=== PATIENT | male | born 1995 | race Two or more races ===

== ENCOUNTER 2019-04-16 05:10 | Emergency (ER) | payer SELFPAY ==
[~2019-04-16] VITALS: Ht 180.3 cm; Wt 77.1 kg
[2019-04-16 05:21] VITALS: BP 128/85
--- NOTE | 2019-04-16 05:21 | NUR ---
ED Nurse Note: pt brought in by [facility] for medical clearance, c/c left wrist pain since today, denies recent injury.
[2019-04-16 05:59] VITALS: BP 128/85
--- NOTE | 2019-04-16 06:00 | NUR ---
ER DISCHARGE NOTE: Patient is cleared to be discharged per ERMD, pt is aox4, on room air, with stable vital signs. lasd was given dc and prescription instructions, pt was able to verbalize understanding, pt id band removed. pt is able to ambulate with lasd and took all belongings.
--- NOTE | 2019-04-16 07:44 | Diagnostic Imaging Report ---
EXAM: XR Left Wrist Complete, 3 Views CLINICAL HISTORY: PAIN TECHNIQUE: Frontal, lateral and oblique views of the left wrist. COMPARISON: No relevant prior studies available. FINDINGS: Bones/joints: Unremarkable. No acute fracture. No dislocation. Soft tissues: Unremarkable. No radiopaque foreign body. IMPRESSION: Unremarkable left wrist x-rays.
--- NOTE | 2019-04-18 15:57 | Emergency Room Report ---
History of Present Illness General Chief Complaint: Medical Clearance Source: Patient Present Illness HPI 23-year-old male presents ED complaining of left wrist pain. Brought in by [employer]. Is here for clearance. In handcuffs. Complaining of left wrist pain. States the handcuffs are tight. It is throbbing, 8 out of 10, nonradiating. Denies any other injuries. No other aggravating relieving factors. Denies any other associated symptoms Allergies: Coded Allergies: No Known Allergies (Unverified , 04/16/19) Patient History Past Medical History: none Past Surgical History: none Pertinent Family History: none Social History: Denies: smoking, alcohol use, drug use Immunizations: UTD Reviewed Nursing Documentation: PMH: Agreed; PSxH: Agreed Nursing Documentation-PMH Past Medical History: No Stated History Review of Systems All Other Systems: negative except mentioned in HPI Physical Exam Vital Signs Date Time Temp Pulse Resp B/P (MAP) Pulse Ox O2 Delivery O2 Flow Rate FiO2 04/16/19 05:13 98.2 79 18 128/85 (99) 97 Room Air Sp02 EP Interpretation: reviewed, normal General Appearance: no apparent distress, alert, GCS 15, non-toxic Head: normocephalic Eyes: bilateral eye normal inspection, bilateral eye PERRL ENT: normal ENT inspection Neck: normal inspection Respiratory: normal inspection Cardiovascular #1: normal inspection Gastrointestinal: normal inspection Rectal: deferred Genitourinary: no CVA tenderness Musculoskeletal: tender - L wrist Neurologic: alert, oriented x3, responsive, motor strength/tone normal, sensory intact, speech normal Psychiatric: normal inspection Skin: normal color Lymphatic: normal inspection Procedures Splinting Splinting : Consent: Verbal Pre-Made Type: velcro Splint: wrist Pre-Proc Neuro Vasc Exam: normal Post-Proc Neuro Vasc Exam: normal Patient Tolerated: Well Complications: None Medical Decision Making Diagnostic Impression: Primary Impression: Wrist pain Qualified Codes: M25.532 - Pain in left wrist Additional Impression: Medical clearance for incarceration ER Course Hospital Course 23 yo M presents to ED c/o L wrist pain. in handcuffs Differential diagnoses include: Fracture, dislocation, sprain, contusion Clinical course Patient placed on stretcher. After initial history and physical, I ordered Xrays L wrist Xrays read shows no acute fracture/dislocation. discussed findings with patient. Placed in Velcro wrist splint for symptomatic comfort. Patient is medically cleared for incarceration Diagnosis - wrist pain, medical clearance for incarceration Stable and discharged to police custody. apply ice. weight bear as tolerated. Followup with PMD. Return to ED if symptoms recur or worsen Other X-Ray Diagnostic Results Other X-Ray Diagnostic Results : X-Ray ordered: L wrist # of Views/Limited Vs Complete: 3 View Indication: Pain EP Interpretation: Yes Interpretation: no dislocation, no soft tissue swelling, no fractures Impression: No acute disease Electronically Signed by: Electronically signed by Doyle Ward MD Last Vital Signs Date Time Temp Pulse Resp B/P (MAP) Pulse Ox O2 Delivery O2 Flow Rate FiO2 04/16/19 05:59 98.2 79 18 128/85 97 Room Air Status: improved Disposition: D/C TO LAW ENFORCEMENT IN CUST Condition: Stable Referrals: [facility]ame [facility] Departure Forms: Correction Clearance Patient Instructions: Wrist Pain, [id number] Doyle Ward MD Apr 18, 2019 15:57
== END 2019-04-16 05:59 ==
LOC: EMR 05:27
DX: M25.532 Pain in left wrist (principal)
CPT/HCPCS: 29125; 99283